=== PATIENT | female | born 1990 | race Caucasian/White ===

== ENCOUNTER 2018-04-23 06:18 | Emergency (ER) | payer OTHER ==
[~2018-04-23] VITALS: Ht 152.4 cm; Wt 56.7 kg
[2018-04-23 07:50] VITALS: BP 119/81
== END 2018-04-23 07:50 | disposition home or self-care (01) ==
LOC: ER 06:18
DX: J06.9 Acute upper respiratory infection, unspecified (principal); Z87.891 Personal history of nicotine dependence

== ENCOUNTER 2021-02-15 20:26 | Emergency (ER) | payer OTHER ==
[~2021-02-15] VITALS: Ht 152.4 cm; Wt 61.2 kg
[2021-02-15 20:38] VITALS: BP 137/89
[2021-02-15 20:53] LABS: URINE BILIRUBIN NEGATIVE (Negative); URINE BLOOD 3+ (Negative); URINE CLARITY CLOUDY; URINE COLOR YELLOW; URINE GLUCOSE-RANDOM* NEGATIVE (Negative); URINE KETONES 1+ (Negative); URINE NITRITE-REFLEX NEGATIVE (Negative); URINE PROTEIN (DIPSTICK) 2+ (Negative); URINE UROBILINOGEN 0.2 E.U./dl (0.2-1.0)
[2021-02-15 20:57] LABS: URINE LEUKOCYTES-REFLEX 3+ (Negative)
[2021-02-15] MEDS ORDERED: CEPHALEXIN500 MG PO (21:14)
[2021-02-15] MEDS ORDERED: PHENAZOPYRIDIN200 M2 PO (21:14)
[2021-02-15 21:15] LABS: SQUAMOUS 0-3 Few /LPF (0-3); URINE RBC >20 Many /HPF (NONE SEEN); URINE WBC-REFLEX >25 Many /HPF (0-5)
== END 2021-02-15 21:20 | disposition home or self-care (01) ==
LOC: ER 20:26
PROVIDERS: Nurse Practitioner
DX: N39.0 Urinary tract infection, site not specified (principal); Z91.09 Other allergy status, other than to drugs and biological substances; Z87.891 Personal history of nicotine dependence